=== PATIENT | male | born 1945 | race Caucasian/White ===

== ENCOUNTER 2019-11-21 08:33 | Outpatient (CLI) | payer MEDICARE, BC ==
[2019-11-21] MEDS ORDERED: Magnevist 469MG/ML 20 ML VIAL ONE (13:42)
--- NOTE | 2019-11-21 15:52 | MRI ---
MRI PELVIS (PROSTATE) WITH AND WITHOUT IV CONTRAST AND REVIEW ON INDEPENDENT 3D WORKSTATION: 11/21/19 HISTORY: Elevated PSA. Benign prostatic hyperplasia. FINDINGS: The prostate measures 4.8 x 3.3 x 4 cm with volume of 33 mL. No focal abnormal areas of restricted diffusion is seen in the peripheral zone to suggest malignant p rocess. No lentiform area of abnormally decreased T2 signal seen in the transition zones to suggest a maligna nt process. No focal arterial enhancing mass is seen. The prostatic capsule is intact. The seminal vesicles are i ntact. No pelvic lymphadenopathy seen. The pelvic sidewall is normal. No abnormal areas of signal rep lacement are seen on the T1 weighted sequences of the pelvis to suggest osseous metastatic disease. IMPRESSION: PI-RADS 2: Low (clinically significant prostate cancer is unlikely to be present). This study was interpreted in consultation with Dr. Robbie Rodriguez who concurs. POS: [facility]
== END 2019-11-21 08:34 | disposition home or self-care (01) ==
LOC: TBSIIMAG 08:33
PROVIDERS: ATTEND Urology
DX: N40.1 Benign prostatic hyperplasia with lower urinary tract symptoms (principal); R97.20 Elevated prostate specific antigen [PSA]
CPT/HCPCS: 72197; 82565; A9579